=== PATIENT | female | born 1950 | race Caucasian/White ===

== ENCOUNTER → 2018-09-13 | Outpatient (REF) | payer BC, MEDICARE ==
[~2018-09-13] MED LIST: ASPI81TA85 PO; METO50TA7 OR; OMEP-218 OR; SPIR-10 OR; TRAM50TA2 OR
[2018-09-13 19:05] LABS: APPEARANCE, URINE CLOUDY (CLEAR); BACTERIA, URINE AUTO 1+ (NEGATIVE); BILIRUBIN, URINE AUTO NEGATIVE (NEGATIVE); BLOOD, URINE BLOOD 2+ (NEGATIVE); COLOR, URINE YELLOW (YELLOW); GLUCOSE, URINE (UA) AUTO NEGATIVE (NEGATIVE); KETONE, URINE AUTO NEGATIVE (NEGATIVE); LEUKOCYTE ESTERASE, URINE AUTO 2+ (NEGATIVE); NITRITE, URINE AUTO POSITIVE (NEGATIVE); PROTEIN, URINE AUTO 1+ mg/dL (NEGATIVE); RBC, URINE AUTO 17 /HPF (0-3); SPECIFIC GRAVITY URINE AUTO 1.011 (1.002-1.035); SQUAMOUS EPITHELIAL CELL UR AU 0 /HPF (0-6); UROBILINOGEN, URINE AUTO 0.2 mg/dL (0.0-2.0); WBC, URINE AUTO 100 /HPF (0-3)
== END ==
LOC: M LAB REF 16:55
PROVIDERS: ATTEND Physician Assistant Medical
DX: N39.0 Urinary tract infection, site not specified (principal)

== ENCOUNTER → 2018-09-29 | Outpatient (CLI) | payer MEDICARE ==
[2018-09-29 19:17] LABS: BASO # 0.1 10^3/uL (0.0-0.2); BASO % 0.3 % (0.0-1.0); EOS # 0.1 10^3/uL (0.0-0.50); EOS % 0.4 % (0.0-3.0); HEMOGLOBIN 14.3 g/dl (12.0-15.5); LYMPH # 2.8 10^3/uL (1.5-4.5); LYMPH % 13.6 % (24.0-44.0); MEAN CORPUSCULAR HEMOGLOBIN 32.8 pg (27.0-33.0); MEAN CORPUSCULAR VOLUME 96.3 fl (80.0-96.0); MONO # 1.4 10^3/uL (0.0-0.8); MONO % 6.7 % (0.0-5.0); NEUTROPHILS # 16.4 10^3/uL (1.8-7.7); NEUTROPHILS % 78.6 % (36.0-66.0); PLATELET COUNT, AUTOMATED 340 10^3/uL (150-450); RED BLOOD COUNT 4.36 10^6/uL (4.00-5.40); WHITE BLOOD COUNT 20.8 10^3/uL (4.0-10.0)
[2018-09-29 19:28] LABS: ALBUMIN 3.5 GM/DL (3.2-5.2); ALT/SGPT 19 U/L (12-78); AMYLASE 21 U/L (25-115); BILIRUBIN,TOTAL 0.6 MG/DL (0.2-1.0); BLOOD UREA NITROGEN 13 MG/DL (7-18); CARBON DIOXIDE LEVEL 29 MEQ/L (21-32); CHLORIDE LEVEL 101 MEQ/L (98-107); CREATININE FOR GFR 0.58 MG/DL (0.55-1.30); GLOMERULAR FILTRATION RATE > 60.0 (>45); GLUCOSE, FASTING 89 MG/DL (70-100); LIPASE 52 U/L (73-393); POTASSIUM SERUM 3.9 MEQ/L (3.5-5.1); SODIUM LEVEL 137 MEQ/L (136-145); TOTAL PROTEIN 6.7 GM/DL (6.4-8.2)
--- NOTE | 2018-09-30 09:17 | REP ---
Supine abdomen two views: Comparison is 11/19/2007. There is no bowel distension or obstruction. There is a large volume of fecal residue throughout the colon, likely constipation. There is advanced deforming osteoarthritis of the right hip as an interval change. Left hip is unremarkable. Electronically Signed by Nick Palacio MD 09/29/2018 03:36 P
== END ==
LOC: M WUC 13:51
PROVIDERS: ATTEND Physician Assistant
DX: R31.9 Hematuria, unspecified (principal); R10.30 Lower abdominal pain, unspecified

== ENCOUNTER → 2019-03-07 | Outpatient (CLI) | payer MEDICARE ==
[~2019-03-07] MED LIST changes: +ALEV220T22 PO; +CVS10CAP7 PO; +ESTRTAB11 PO; +FISH1000 PO; +IBUP-1114 PO; -METO50TA7 OR; +METO50TA7 PO; +MULTCAP PO; -OMEP-218 OR; +OMEP-218 PO; +PERC5TAB12 PO; -SPIR-10 OR; +SPIR-10 PO; +XARE10TA PO
--- NOTE | 2019-03-07 16:26 | REP ---
Chest x-ray: Two views. History: Preop. Comparison chest x-ray: November 24 1007. Findings: A multilead pacemaker remains in the right heart via the left side. The lungs are hyperinflated consistent with some degree of COPD with flattening of hemidiaphragms and an increase in the AP diameter of the chest. Lung horn are free of infiltrate. There is mild linear fibrosis versus plate-like atelectasis in the left mid lung zone partially obscured by the pacemaker power plant. Lung horn are otherwise clear. Pleural angles are sharp. The heart is not enlarged. No significant bony abnormality. Pulmonary vasculature is not increased. Impression: Plate-like atelectasis versus linear scarring left perihilar region. Hyperinflation. Pacemaker. Otherwise no acute disease. Electronically Signed by Tapan Ramos MD 03/07/2019 04:53 P
[2019-03-07 17:43] LABS: HEMOGLOBIN 15.2 g/dl (12.0-15.5); MEAN CORPUSCULAR HEMOGLOBIN 32.8 pg (27.0-33.0); MEAN CORPUSCULAR HGB CONC 34.5 g/dl (32.0-36.5); PLATELET COUNT, AUTOMATED 244 10^3/uL (150-450); RED BLOOD COUNT 4.63 10^6/uL (4.00-5.40); WHITE BLOOD COUNT 8.3 10^3/uL (4.0-10.0)
[2019-03-07 18:02] LABS: INR 0.95; PROTHROMBIN TIME 12.4 SECONDS (11.8-14.0)
[2019-03-07 18:09] LABS: ERYTHROCYTE SEDIMENTATION RATE 12 mm/hr (0-30)
[2019-03-07 18:12] LABS: ALBUMIN 3.6 GM/DL (3.2-5.2); ALT/SGPT 19 U/L (12-78); BILIRUBIN,TOTAL 0.5 MG/DL (0.2-1.0); BLOOD UREA NITROGEN 12 MG/DL (7-18); CARBON DIOXIDE LEVEL 30 MEQ/L (21-32); CHLORIDE LEVEL 103 MEQ/L (98-107); CREATININE FOR GFR 0.63 MG/DL (0.55-1.30); GLOMERULAR FILTRATION RATE > 60.0 (>45); GLUCOSE, FASTING 93 MG/DL (70-100); POTASSIUM SERUM 4.3 MEQ/L (3.5-5.1); SODIUM LEVEL 142 MEQ/L (136-145); TOTAL PROTEIN 6.5 GM/DL (6.4-8.2)
--- NOTE | 2019-03-07 21:19 | ECGEPIP ---
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
== END ==
LOC: M LAB 14:59
PROVIDERS: ATTEND Orthopaedic Surgery
DX: Z01.818 Encounter for other preprocedural examination (principal); M16.11 Unilateral primary osteoarthritis, right hip; R91.8 Other nonspecific abnormal finding of lung field; Z95.0 Presence of cardiac pacemaker

== ENCOUNTER 2019-03-20 08:24 | Inpatient (IN) | payer MEDICARE ==
--- NOTE | 2019-03-16 07:10 | HPE ---
DATE OF ADMISSION: 03/20/2019 CHIEF COMPLAINT: Right hip pain. HISTORY OF PRESENT ILLNESS: Breonna is a pleasant 68-year-old female with progressively worsening right hip pain and stiffness. She has failed to improve with conservative treatment. She elected for surgery for her continued symptoms. She has pain with weightbearing activities and her activities of daily living. X-rays of her hip are notable for advanced osteoarthritis of the right hip joint. She has consented for a right total hip arthroplasty by Dr. Jeffery Segal. Medical optimization was performed by Dr. Rodríguez. ALLERGIES: PENICILLIN. CURRENT MEDICATIONS: - spironolactone 25 mg 1/2 pill every day - metoprolol 50 mg at bedtime - omeprazole 20 mg once a day - 81 mg aspirin before bed - 1200 mg fish oil every day - calcium plus D - over 50 multivitamin - Estroven PAST MEDICAL HISTORY: Includes: High blood pressure. Heart disease. Heart disease. Gastroesophageal reflux disease. PAST SURGICAL HISTORY: Includes: Tonsillectomy. Cholecystectomy. Tubal. Partial hysterectomy. Cardiac defibrillator with two battery replacements. SOCIAL HISTORY: This patient is retired. Smokes a pack a day. Does not drink alcohol. FAMILY HISTORY: Noncontributory. REVIEW OF SYSTEMS: This patient denies chest pain, heart palpitations, cough, wheezing, difficulty breathing and shortness of breath. Denies abdominal pain, nausea, vomiting, diarrhea or constipation. Denies recent upper respiratory infection or urinary tract infection symptoms. She does complain of persistent pain in the right hip. PHYSICAL EXAMINATION: General: She is a well-nourished, well-developed in no acute distress, alert female patient. She walks with a moderate limp, favoring her right lower extremity. She does use a walker. Vital signs: She is 61-1/2 inches tall, weighs 168 pounds with a temperature of 98.1, respirations of 18, blood pressure 130/87, pulse of 62. Neck was supple without adenopathy or jugular venous distension. Lungs were clear to auscultation without rales or wheeze. Heart regular rate and rhythm. Abdomen: Bowel sounds were present. Extremities: Examination of the hip revealed intact skin. She had decreased internal, external rotation due to pain and stiffness. The limb was neurovascularly intact. LABORATORY DATA: Chest x-ray showed plate-like atelectasis versus linear scarring in the left perihilar region, hyperinflation, presence of a pacemaker, otherwise no acute cardiopulmonary disease processes. EKG showed normal sinus rhythm at 74 beats per minute. ProTime was 12.4, INR 0.95. CBC within normal limits. Sed rate 12, glucose 93, BUN 12, creatinine 0.63, sodium 142, potassium 4.3. IMPRESSION: Symptomatic osteoarthritis of the right hip joint. PLAN: Consented for a right total hip arthroplasty by Dr. Jeffery Segal.
[~2019-03-20] VITALS: Ht 157.5 cm; Wt 74.4 kg
[~2019-03-20 08:24] MED LIST changes: +CLINDAMYCIN 900 MG in IV 1 EA IV ONE; -PERC5TAB12 PO; -XARE10TA PO
--- NOTE | 2019-03-20 09:11 | IPN ---
DATE: 03/20/2019 Patient seen and examined. She wished to go ahead with a right total hip arthroplasty. She understands the nature of the procedure, the risks of bleeding, infection, damage to nerves, vessels, persistent pain, wear loosening, dislocation, leg length inequality, blood clots, medical problems, among others. Plan on proceeding with a right hip arthroplasty and I would anticipate using a metal polyethylene, standard weightbearing surface.
[2019-03-20] MEDS ORDERED: TRANEXAMIC ACID 100 MG/ML 10ML VIAL As Ordered ONE (09:12)
[2019-03-20] MEDS ORDERED: EPINEPHrine INJ 1 MG/ML 1ML AMP As Ordered ONE (09:13)
[2019-03-20] MEDS ORDERED: BUPIVACAINE LIPOSOME/PF 1.3% 20ML VIAL (13.3MG/ML)(EXPAREL)(C9290 PER1MG) As Ordered ONE (09:13)
[2019-03-20] MEDS ORDERED: CLINDAMYCIN INJ 900MG/6ML VIAL As Ordered ONE (09:16)
[2019-03-20] MEDS: ceFAZolin 1GM INJ (J0690 PER 500MG) As Ordered ONE ×2 (11:04→11:08)
[2019-03-20] MEDS ORDERED: PROPOFOL 500 MG/50 ML VIAL As Ordered ONE (11:14)
[2019-03-20] MEDS ORDERED: PHENYLephrine HCL 500 MCG/5 ML (100MCG/ML) SYRINGE (J2370) As Ordered ONE (11:14)
[2019-03-20] MEDS ORDERED: MIDAZOLAM INJ 2 MG/2 ML VIAL (J2250) As Ordered ONE (11:14)
[2019-03-20] MEDS ORDERED: fentaNYL 100 MCG/2 ML INJECTION (J3010) As Ordered ONE (11:14)
[2019-03-20] MEDS ORDERED: ePHEDrine SULFATE 25 MG/5 ML(5MG/ML) SYRINGE As Ordered ONE (11:14)
[2019-03-20] MEDS ORDERED: LIDOCAINE 2% INJ 100 MG/5 ML SDV (FOR ANES.) As Ordered ONE (11:14)
[2019-03-20] MEDS ORDERED: ONDANSETRON 4MG/2ML VIAL (J2405) As Ordered ONE (11:14)
[2019-03-20] MEDS ORDERED: LR 1,000 ML IV SCH ×2 (12:15→14:00)
[2019-03-20] MEDS ORDERED: METOCLOPRAMIDE INJ 10MG/2ML VIAL (J2765) IV PRN ×2 (12:15→14:00)
[2019-03-20] MEDS ORDERED: ACETAMINOPHEN TAB 650MG DOSE (2X325MG) PO PRN (12:15)
[2019-03-20] MEDS ORDERED: fentaNYL 100 MCG/2 ML INJECTION (J3010) IV PRN ×2 (12:15→14:00)
[2019-03-20] MEDS ORDERED: MEPERIDINE INJ 25 MG/ML VIAL (J2175) IV PRN ×2 (12:15→14:00)
[2019-03-20] MEDS ORDERED: PERCOCET 5MG/325MG TAB PO PRN ×3 (12:15→14:00)
[2019-03-20] MEDS ORDERED: MORPHINE 4 MG/ML 1ML VIAL/SYRINGE (J2270) IV PRN (12:15)
[2019-03-20] MEDS ORDERED: FLEET ENEMA PR PRN (12:15)
[2019-03-20] MEDS ORDERED: ONDANSETRON 4MG/2ML VIAL (J2405) IV PRN ×3 (12:15→14:00)
--- NOTE | 2019-03-20 12:44 | REP ---
Right hip three views postoperative study: There is a total hip arthroplasty. The components are tightly applied and in satisfactory positions alignment. There are skin angelito. Electronically Signed by Nick Palacio MD 03/20/2019 12:35 P
--- NOTE | 2019-03-20 13:55 | HPEPDOC ---
General Date of Admission Mar 20, 2019 at 08:24 Date of Service: Mar 20, 2019 Chief Complaint The patient is a 68-year-old female admitted with a reason for visit of Right Hip Osteoarthritis. Source: Patient, RN/MD, Old records History of Present Illness Consultation report: Consultation requested by Dr Segal Consultation for management of medical comorbidities. HPI: This is a 68-year-old female with progressively worsening right hip pain and stiffness. She has failed to improve with conservative treatment. She elected for surgery for her continued symptoms. She has been admitted to the orthopedic service for elective right total hip arthroplasty. Hospitalist service has been consulted for management of medical comorbidities. Patient had an uneventful surgery. At present she is complaining of dull throbbing and aching pain at the right hip about 5/10 in intensity without any radiation. Say the numbness is wearing off . Home Medications Scheduled Aspirin (Aspir 81) 81 Mg Tablet.dr, 1 TAB PO DAILY for pain, (Reported) Melatonin (Melatonin) 10 Mg Capsule, 10 MG PO QHS, (Reported) Metoprolol Tartrate (Metoprolol Tartrate) 50 Mg Tablet, 50 MG PO QHS, (Reported) Multivit,Min/Folic Acid/Sfg901 (Estroven Max Strength Caplet) 400 Mcg Tablet, 1 TAB PO DAILY, (Reported) Multivitamin (Multivitamins) 1 Each Capsule, 1 CAP PO DAILY, (Reported) [place]-3 Fatty Acids/Fish Oil (Fish Oil 1,000 mg Capsule) 1 Each Capsule, 1,000 MG PO DAILY, (Reported) Omeprazole (Omeprazole) 20 Mg Capsule.dr, 20 MG PO DAILY, (Reported) Spironolactone (Spironolactone) 25 Mg Tablet, 12.5 MG PO DAILY, (Reported) Scheduled PRN Ibuprofen (Ibuprofen) 400 Mg Tablet, 400 MG PO PRN PRN for PAIN, (Reported) Naproxen Sodium (Aleve) 220 Mg Tablet, 220 MG PO PRN PRN for PAIN, (Reported) Tramadol HCl (Tramadol HCl) 50 Mg Tablet, 50 MG OR BIDP PRN for PAIN, (Reported) Allergies Coded Allergies: Penicillins (Verified Allergy, Severe, anaphylaxis, 03/20/19) TAPE (Verified Allergy, Intermediate, blisters, 03/20/19) Past Medical History Medical History Ventricular tachycardia has AICD in place since 2001 has not had any recent discharges for many years Hypertension Gastroesophageal reflux disease. Rheumatic fever at the age of 10 Upper extremity provoked DVT after AICD placement. Hiatal hernia Surgical History Right Total kne replacement. Tonsillectomy. Cholecystectomy. Tubal. Partial hysterectomy. Cardiac defibrillator with two battery replacements. Radiofrequency cardiac ablation for v tach in 2001 Family History No family history of premature cardiac disease. Social History * Smoker: current smoker Alcohol: Denies Drugs: denies A-FIB/CHADSVASC A-FIB History Current/History of A-Fib/PAF?: No Review of Systems Constitutional: Denies: Chills, Fever, Night Sweats Eyes: Denies: Pain, Vision change ENT: Denies: Head Aches, Ear Pain, Dysphagia Skin: Denies: Rash, Lesions, Breakdown Pulmonary: Denies: Dyspnea, Cough Cardiovascular: Denies: Chest Pain, Palpitations, Orthopnea, Paroxysmal Noc. Dyspnea, Lt Headedness Gastrointestinal: Denies: Nausea, Vomiting, Abdominal Pain, Diarrhea Genitourinary: Denies: Dysuria, Frequency, Incontinence, Retention Hematologic: Denies: Bruising, Bleeding Excessively Musculoskeletal: Reports: Joint Pain Physical Examination General Exam: Positive: Alert, Cooperative, No Acute Distress Eye Exam: Positive: PERRLA, Conjunctiva & lids normal, EOMI; Negative: Sclera icteric ENT Exam: Positive: Atraumatic, Mucous membr. moist/pink, Pharynx Normal Neck Exam: Positive: Supple; Negative: JVD, thyromegaly Chest Exam: Positive: Clear to auscultation, Normal air movement Heart Exam: Positive: Rate Normal, Regular Rhythm, Normal S1, Normal S2, Murmurs (systolic murmur best heard in the parasternal region); Negative: Rubs Abdomen Exam: Positive: Normal bowel sounds, Soft; Negative: Tenderness, Hepatospenomegaly Extremity Exam: Positive: Normal pulses; Negative: Clubbing, Cyanosis, Edema Skin Exam: Positive: Nl turgor and temperature; Negative: Breakdown, Lesion Vital Signs Vital Signs Date Time Temp Pulse Resp B/P (MAP) Pulse Ox O2 Delivery O2 Flow Rate FiO2 03/20/19 09:25 97.2 69 18 142/62 (88) 99 Assessment/Plan This is a 68-year-old female with progressively worsening right hip pain and stiffness. She has failed to improve with conservative treatment. She elected for surgery for her continued symptoms. She has been admitted to the orthopedic service for elective right total hip arthroplasty. Hospitalist service has been consulted for management of medical comorbidities. S/P right total hip replacement for advanced osteoarthritis pain control as per ortho Dvt prophylaxis as per ortho PT/OT History of Ventricular tachycardia Has radio frequency ablation in 2001. has AICD in place since 2001 has not had any recent discharges for many years. last discharge was in 2001. Hypertension continue home meds with hold parameters. Gastroesophageal reflux disease. Hiatal hernia Rheumatic fever at the age of 10 Has tricuspid regurgitation. no issues known to have a murmur Upper extremity provoked DVT after AICD placement. Plan / VTE VTE Prophylaxis Ordered?: Yes RAEANN BECERRA MD Mar 20, 2019 11:46
[2019-03-20 13:57] VITALS: BP 135/76
[2019-03-20] MEDS: LR 1,000 ML IV SCH (13:58)
[2019-03-20] MEDS: OMEPRAZOLE 20 MG CAP PO SCH (15:42)
[2019-03-20] MEDS: SPIRONOLACTONE 12.5MG PER 1/2 TABLET PO SCH (15:42)
--- NOTE | 2019-03-20 15:58 | RO ---
DATE OF PROCEDURE: 03/20/2019 PREOPERATIVE DIAGNOSIS: Right hip osteoarthritis. POSTOPERATIVE DIAGNOSIS: Right hip osteoarthritis. OPERATIVE PROCEDURE: Right total hip arthroplasty using a Winchester size 7 high offset +1.5 neck, 54 cup, 36 head. SURGEON: Jeffery Segal MD SENIOR APPLICATION PROGRAMMER: Du [place]aman ANESTHESIA: Spinal ESTIMATED BLOOD LOSS: Less than 200 COMPLICATIONS: None. INDICATIONS: This is a 68-year woman has had gradually worsening right hip pain. She wished to go ahead with surgical treatment. PROCEDURE The patient was taken to the operating room and placed in the left lateral decubitus position. All areas were padded appropriately. The right hip was prepped and draped in the usual sterile fashion. Time-out was performed. Longitudinal incision was made over the lateral aspect of the hip. Sharp dissection was carried down through subcutaneous tissue and then incised the fascia rosemarie and then divided the anterior 40% of the abductor off of the femur exposing the acetabulum and proximal femur. We dislocated the hip. I used a canal initiating reamer. The canal finding reamer. The lateralizing reamer and then were able to ream up to a size 7, which had good purchase and good fit. I then made the neck cut about three-quarters of a fingerbreadth up from the lesser trochanter. The head was removed, the acetabulum was then prepared. There were some large osteophytes and loose bodies around the acetabulum. I then removed the soft tissue from around the acetabulum, sequentially reamed up to 53 which had good bleeding bone. I was able to medialize this a fair amount down to the floor. Irrigated and then impacted a size 54 acetabular component. The appropriate amount of anteversion and horizontal tilt. Placed the actual polyethylene. I irrigated several times prior to this. The polyethylene was then impacted. I then directed attention back to the femur, used the broaches to broach up to a size 7 which a good fit and fill and did a trial reduction off of this. I used the high offset just because I medialized the acetabulum to get good bleeding bone and a size 1.5 high offset had excellent fit and excellent stability; soft tissue tension was appropriate. I then removed the trial components, impacted in the actual high offset size 7 Winchester stem after irrigating and then placed the +1.5, 36 ball, impacted this in place, reduced the hip, put the hip through range of motion. Excellent stability was noted. No impingement was noted. I had removed some osteophytes from around it. I was very pleased with the actual components and the fit. I then irrigated, placed the Exparel and TXA in the deep tissues, closed the deep layer with #1 Vicryl suture, the abductor with #1 Vicryl suture obtaining an excellent closure. Several stitches through bone. Closed the fascia rosemarie with #1-0 Vicryl suture and running Stratafix, irrigated each level, closed the subcu with #2-0 Vicryl and the skin with angelito. Sterile dressing was applied. She was taken to recovery room in stable condition. There were no known complications. The resident assistant cna was instrumental in holding retractors and assisting in reducing and dislocating the hip and assisting in wound closure and positioning.
[2019-03-20] MEDS: MORPHINE 4 MG/ML 1ML VIAL/SYRINGE (J2270) IV PRN ×3 (16:31→22:51)
[2019-03-20] MEDS: NICOTINE 14 MG/24 HR TRANSDERMAL TD SCH (16:45)
[2019-03-20] MEDS: PERCOCET 5MG/325MG TAB PO PRN (18:05)
[2019-03-20] MEDS: CLINDAMYCIN 900 MG in IV 1 EA IV SCH (18:13)
[2019-03-20] MEDS: METOPROLOL TART 50 MG TAB PO SCH (20:32)
[2019-03-20 22:00] VITALS: BP 128/61
[2019-03-21] MEDS: LR 1,000 ML IV SCH (01:35)
[2019-03-21 02:00] VITALS: BP 137/65
[2019-03-21] MEDS: CLINDAMYCIN 900 MG in IV 1 EA IV SCH (02:49)
[2019-03-21] MEDS: MORPHINE 4 MG/ML 1ML VIAL/SYRINGE (J2270) IV PRN ×2 (02:49→05:54)
[2019-03-21 06:00] VITALS: BP 140/47
[2019-03-21 06:42] LABS: HEMATOCRIT 36.3 % (36.0-47.0); HEMOGLOBIN 12.7 g/dl (12.0-15.5); MEAN CORPUSCULAR VOLUME 97.1 fl (80.0-96.0); PLATELET COUNT, AUTOMATED 205 10^3/uL (150-450); RED BLOOD COUNT 3.74 10^6/uL (4.00-5.40); WHITE BLOOD COUNT 9.9 10^3/uL (4.0-10.0)
[2019-03-21] MEDS ORDERED: PERC5TAB12 PO (07:01)
[2019-03-21] MEDS ORDERED: XARE10TA PO (07:01)
[2019-03-21] MEDS: SPIRONOLACTONE 12.5MG PER 1/2 TABLET PO SCH (07:58)
[2019-03-21] MEDS: SENOKOT S TAB PO SCH ×2 (07:58→20:21)
[2019-03-21] MEDS: OMEPRAZOLE 20 MG CAP PO SCH (07:58)
[2019-03-21] MEDS: MIRALAX *UNIT DOSE* 17GM PACKET PO SCH (07:59)
[2019-03-21] MEDS: MOM 30ML SUSPENSION UDC PO SCH (07:59)
[2019-03-21] MEDS: PERCOCET 5MG/325MG TAB PO PRN ×4 (07:59→22:07)
[2019-03-21] MEDS: NICOTINE 14 MG/24 HR TRANSDERMAL TD SCH (07:59)
[2019-03-21 10:15] VITALS: BP 133/72
--- NOTE | 2019-03-21 11:34 | IPNPDOC ---
Subjective Date Seen The patient was seen on 03/21/19. Subjective Chief Complaint/HPI No complaints this am. feeling well but says still not moving well. No fever or chills, no chest pain, no abdominal pain, no nausea or vomiting . Objective Physical Examination General Exam: Positive: Alert, Cooperative, No Acute Distress Eye Exam: Positive: PERRLA, Conjunctiva & lids normal, EOMI; Negative: Sclera icteric ENT Exam: Positive: Atraumatic, Mucous membr. moist/pink, Pharynx Normal Neck Exam: Positive: Supple; Negative: JVD, thyromegaly Chest Exam: Positive: Clear to auscultation, Normal air movement Heart Exam: Positive: Rate Normal, Regular Rhythm, Normal S1, Normal S2, Murmurs (systolic murmur best heard in the parasternal region); Negative: Rubs Abdomen Exam: Positive: Normal bowel sounds, Soft; Negative: Tenderness, Hepatospenomegaly Extremity Exam: Positive: Normal pulses; Negative: Clubbing, Cyanosis, Edema Skin Exam: Positive: Nl turgor and temperature; Negative: Breakdown, Lesion Assessment /Plan Assessment This is a 68-year-old female with progressively worsening right hip pain and stiffness. She has failed to improve with conservative treatment. She elected for surgery for her continued symptoms. She has been admitted to the orthopedic service for elective right total hip arthroplasty. Hospitalist service has been consulted for management of medical comorbidities. S/P right total hip replacement for advanced osteoarthritis pain control as per ortho Dvt prophylaxis as per ortho PT/OT History of Ventricular tachycardia Has radio frequency ablation in 2001. has AICD in place since 2001 has not had any recent discharges for many years. last discharge was in 2001. Hypertension continue home meds with hold parameters. Gastroesophageal reflux disease. Hiatal hernia Rheumatic fever at the age of 10 Has tricuspid regurgitation. no issues known to have a murmur Upper extremity provoked DVT after AICD placement. Plan/VTE VTE Prophylaxis Ordered?: Yes VS, I&O, 24H, Fishbone Vital Signs/I&O Vital Signs Date Time Temp Pulse Resp B/P (MAP) Pulse Ox O2 Delivery O2 Flow Rate FiO2 03/21/19 08:29 18 03/21/19 06:00 98.8 70 140/47 (78) 92 03/20/19 18:51 2.0 I&O- Last 24 Hours up to 6 AM 03/21/19 06:00 Intake Total 3270 ml Output Total 2350 ml Balance 920 ml Laboratory Data 24H LABS Laboratory Tests 2 03/21/19 06:26: Nucleated Red Blood Cells % (auto) 0.0 CBC/BMP Laboratory Tests 03/21/19 06:26 Red Blood Count 3.74 L, Mean Corpuscular Volume 97.1 H, Mean Corpuscular Hemoglobin 34.0 H, Mean Corpuscular Hemoglobin Concent 35.0, Red Cell Distribution Width 12.8 RAEANN BECERRA MD Mar 21, 2019 11:34
[2019-03-21 14:00] VITALS: BP 105/61
[2019-03-21] MEDS ORDERED: RIVAROXABAN 10 MG TAB (XARELTO) PO SCH (18:00)
[2019-03-21 20:21] VITALS: BP 108/62
[2019-03-21] MEDS: METOPROLOL TART 50 MG TAB PO SCH (20:21)
[2019-03-21 21:39] VITALS: BP 108/62
[2019-03-22 06:35] VITALS: BP 138/77
[2019-03-22 06:40] VITALS: BP 109/71
[2019-03-22] MEDS: PERCOCET 5MG/325MG TAB PO PRN ×2 (06:41→12:58)
[2019-03-22] MEDS: MIRALAX *UNIT DOSE* 17GM PACKET PO SCH (09:00)
[2019-03-22] MEDS: MOM 30ML SUSPENSION UDC PO SCH (09:00)
[2019-03-22] MEDS: SENOKOT S TAB PO SCH (09:04)
[2019-03-22] MEDS: OMEPRAZOLE 20 MG CAP PO SCH (09:04)
[2019-03-22] MEDS: NICOTINE 14 MG/24 HR TRANSDERMAL TD SCH (09:04)
[2019-03-22] MEDS: SPIRONOLACTONE 12.5MG PER 1/2 TABLET PO SCH (09:04)
[2019-03-22 14:45] VITALS: BP 128/69
== END 2019-03-22 17:00 | disposition home health service (06) | DRG 470 ==
LOC: M OR 08:24 → M MS5PR 13:40
PROVIDERS: ADMIT Orthopaedic Surgery; ATTEND Orthopaedic Surgery
PROC: 0SR902Z Replacement of Right Hip Joint with Metal on Polyethylene Synthetic Substitute, Open Approach (ICD-10-PCS; principal; 2019-03-20 11:00)
DX: M16.11 Unilateral primary osteoarthritis, right hip (principal); K21.9 Gastro-esophageal reflux disease without esophagitis; F17.210 Nicotine dependence, cigarettes, uncomplicated; R26.89 Other abnormalities of gait and mobility; I10 Essential (primary) hypertension; I36.1 Nonrheumatic tricuspid (valve) insufficiency; K44.9 Diaphragmatic hernia without obstruction or gangrene; Z86.718 Personal history of other venous thrombosis and embolism; Z88.0 Allergy status to penicillin; Z91.048 Other nonmedicinal substance allergy status; Z79.82 Long term (current) use of aspirin; Z79.899 Other long term (current) drug therapy; Z90.49 Acquired absence of other specified parts of digestive tract; Z95.810 Presence of automatic (implantable) cardiac defibrillator; Z90.710 Acquired absence of both cervix and uterus

== ENCOUNTER 2025-04-05 21:59 | Emergency (ER) | payer MEDICARE ==
[~2025-04-05] VITALS: Ht 157.5 cm; Wt 87.4 kg
[~2025-04-05 21:59] MED LIST changes: -ASPI81TA85 PO; +ASPI81TA86 PO; -CLINDAMYCIN 900 MG in IV 1 EA IV ONE; +OMEP-173 PO; -OMEP-218 PO; +PERC5TAB12 PO; +XARE10TA PO
[2025-04-05 22:31] LABS: BASO # 0.1 10^3/uL (0.0-0.2); BASO % 1.0 % (0.0-1.0); EOS # 0.3 10^3/uL (0.0-0.5); EOS % 2.4 % (0.0-3.0); LYMPH # 3.2 10^3/uL (1.5-5.0); LYMPH % 27.9 % (24.0-44.0); MONO # 0.9 10^3/uL (0.0-0.8); MONO % 7.4 % (2.0-8.0); NEUTROPHILS # 6.9 10^3/uL (1.5-8.5); NEUTROPHILS % 60.3 % (36.0-66.0); PLATELET COUNT, AUTOMATED 255 10^3/uL (150-450)
[2025-04-05 23:01] LABS: CALCIUM LEVEL 8.5 MG/DL (8.3-10.6); CARBON DIOXIDE LEVEL 27.0 MMOL/L (20-31); CHLORIDE LEVEL 104.0 MMOL/L (98-107); CK-MB VALUE MASS 1.9 NG/ML (<3.6); CREATININE FOR GFR 0.81 MG/DL (0.55-1.30); GLOMERULAR FILTRATION RATE 76.6 (>39); POTASSIUM SERUM 4.2 MMOL/L (3.5-5.1); SODIUM LEVEL 140.0 MMOL/L (136-145)
[2025-04-05 23:03] LABS: CPK CREATINE PHOSPHOKINASE 62.0 U/L (34-145); MB/CK RELATIVE INDEX 3.06 (< OR =4)
[2025-04-05] MEDS ORDERED: ISOVUE-370 76% 100 ML VIAL As Ordered ONE (23:16)
[2025-04-05 23:54] LABS: CK-MB VALUE MASS 3.8 NG/ML (<3.6)
[2025-04-05 23:55] LABS: CPK CREATINE PHOSPHOKINASE 61.0 U/L (34-145); MB/CK RELATIVE INDEX 6.22 (< OR =4)
[2025-04-06] MEDS: NS 500 ML IV ONE (02:20)
[2025-04-06 02:29] LABS: CK-MB VALUE MASS 5.4 NG/ML (<3.6)
[2025-04-06 02:48] LABS: CPK CREATINE PHOSPHOKINASE 80.0 U/L (34-145); MB/CK RELATIVE INDEX 6.75 (< OR =4)
[2025-04-06] MEDS: KETOROLAC 30 MG/ML 1 ML VIAL IV ONE (03:22)
[2025-04-06 03:59] LABS: MAGNESIUM LEVEL 1.8 MG/DL (1.8-2.4)
[2025-04-06] MEDS ORDERED: HEPARIN SOD 5000 UNITS/ML 1 ML VIAL/SYRINGE IV PRN (04:05)
[2025-04-06] MEDS: AMIODARONE HCL 360 MG in IV 1 EA IV SCH ×2 (04:28→10:31)
[2025-04-06 04:52] LABS: PLATELET COUNT, AUTOMATED 210 10^3/uL (150-450)
[2025-04-06] MEDS: HEPARIN DRIP 25,000 UNITS in IV 1 EA IV SCH (06:09)
[2025-04-06] MEDS: MAG SULF 1GM/100ML (MAG RUN) 1 GM in IV 1 EA IV ONE (06:40)
[2025-04-06] MEDS: NICOTINE 7 MG/24 HR TRANSDERMAL TD ONE (10:44)
[2025-04-06 10:45] VITALS: BP 155/67; TEMP 97.5; O2SAT 92
== END 2025-04-06 10:51 | disposition short-term general hospital (02) ==
LOC: M ED 21:59
DX: I24.89 Other forms of acute ischemic heart disease (principal); S22.42XA Multiple fractures of ribs, left side, initial encounter for closed fracture; Y92.9 Unspecified place or not applicable; Y93.9 Activity, unspecified; Y99.9 Unspecified external cause status; I50.22 Chronic systolic (congestive) heart failure; I11.0 Hypertensive heart disease with heart failure; K21.9 Gastro-esophageal reflux disease without esophagitis; R94.31 Abnormal electrocardiogram [ECG] [EKG]; F17.210 Nicotine dependence, cigarettes, uncomplicated; Z86.73 Personal history of transient ischemic attack (TIA), and cerebral infarction without residual deficits; Z88.0 Allergy status to penicillin; Z91.048 Other nonmedicinal substance allergy status; Z79.01 Long term (current) use of anticoagulants; Z79.899 Other long term (current) drug therapy; Z79.810 Long term (current) use of selective estrogen receptor modulators (SERMs)
CPT/HCPCS: 70450; 71045; 71275; 80048; 82550; 82553; 83735; 83880; 84484; 85025; 85027; 85730; 93005; 93041; 93306; 94760; 96365; 96366; 96367; 96375; 99285; J0282; J1885; J3475; Q9967